=== PATIENT | female | born 1985 | race Two or more races ===

== ENCOUNTER 2016-08-11 00:36 | Emergency (ER) | payer SELFPAY ==
[~2016-08-11] VITALS: Ht 167.6 cm; Wt 61.7 kg
--- NOTE | 2016-08-11 00:53 | NUR ---
JOCELYN Powellii at bedside for I and D on the left forearm abscess.
--- NOTE | 2016-08-11 00:55 | NUR ---
TO bed 7 a 30 yo female bibself with c/o of left forearm abscess. Patient reported to be heroin user. Aaox4, ambulatory. afebrile. VSS. Initiated comfort measures. [employer] INSPECTOR Marsii at bedside for eval.
[2016-08-11] MEDS ORDERED: TDAP [DIPH/PERTUSSIS/TET] 0.5 ML VIAL IM ONE ×2 (01:00→01:03)
--- NOTE | 2016-08-11 01:20 | NUR ---
Patient discharged to home in stable condition. Written and verbal after care instructions given. Patient verbalizes understanding of instruction. Patient is ambulatory with steady gait.
[2016-08-11 01:21] VITALS: BP 130/90
== END 2016-08-11 01:21 | disposition home or self-care (01) ==
LOC: ER 00:36
DX: L02.414 Cutaneous abscess of left upper limb (principal)
CPT/HCPCS: 10060; 90471; 90715; 99283; A4606; A6403; Z7610